=== PATIENT | female | born 1945 | race Caucasian/White ===

== ENCOUNTER 2023-02-15 09:14 | Day surgery (SDC) | payer MEDICARE ==
[~2023-02-15 09:14] MED LIST: LACTATED RINGERS 1,000 ML IV SCH
[2023-02-15] MEDS ORDERED: LACTATED RINGERS 1,000 ML IV ONE (09:44)
[2023-02-15 10:00] VITALS: RESP 16; TEMP 98.2
[2023-02-15] MEDS ORDERED: PROPOFOL 10 MG/ML 20 ML VIAL IV ONE (10:39)
[2023-02-15] MEDS ORDERED: LIDOCAINE 2% INJ 20 MG/ML (2 ML VIAL) ONE (10:39)
--- NOTE | 2023-02-15 11:05 | P.PCN ---
Date of Procedure: 02/15/23 Procedure(s) Performed: BRIEF HISTORY: Patient is a 77 year-old pleasant white female scheduled for an elective colonoscopy as a part of evaluation of prior history of colon polyps. PROCEDURE PERFORMED: Colonoscopy with snare polypectomy. PREOPERATIVE DIAGNOSIS: History of colon polyps. IV sedation per Anesthesia. PROCEDURE: After informed consent was obtained, the patient, was brought into the endoscopy unit. IV sedation was administered by Anesthesia under continuous monitoring. Digital rectal examination was normal. Initially the Olympus CF-160 flexible video colonoscope was then inserted in the rectum, gradually advanced into the cecum with mild to moderate difficulty. Careful examination was performed as the scope was gradually being withdrawn. Ileocecal valve and the appendiceal orifice were visualized and appeared normal. Prep was fair.. Mucosa of the cecum, ascending colon, appeared normal. The transverse colon there was a 7 mm polyp removed by snare polypectomy. Rest of the transverse colon, descending colon, sigmoid colon, and rectum appeared normal. Retroflexion was performed in the rectum and no lesions were seen. The patient tolerated the procedure well. IMPRESSION: 7 mm transverse colon polyp status post polypectomy Rest of the colon appeared normal Melanosis coli RECOMMENDATIONS: Findings of this examination were discussed with the patient as well as a family. She was advised to follow with the biopsy results and have a repeat colonoscopy in 5 years.
[2023-02-15 11:50] VITALS: BP 160/74; PULSE 57
== END 2023-02-15 12:25 | disposition home or self-care (01) ==
LOC: ORWHC2ENDO 09:14
PROVIDERS: ATTEND Internal Medicine Gastroenterology
DX: D12.6 Benign neoplasm of colon, unspecified (principal); D12.3 Benign neoplasm of transverse colon; I10 Essential (primary) hypertension; E78.5 Hyperlipidemia, unspecified; Z88.6 Allergy status to analgesic agent; Z79.899 Other long term (current) drug therapy; K63.89 Other specified diseases of intestine; Z87.19 Personal history of other diseases of the digestive system
CPT/HCPCS: 88305; 45385; J2704; J2001

== ENCOUNTER → 2024-01-29 | Outpatient (CLI) | payer MEDICARE ==
--- NOTE | 2024-02-22 09:20 | CT ---
Patient Cornelio Carvajal M ID [id number] Order # EXAMINATION TYPE: CT abdomen pelvis w con DATE OF EXAM: 02/08/2024 COMPARISON: No comparison available on downtime PACS. INDICATION: Flank pain DLP: 373.5 mGycm, Automated exposure control for dose reduction was used. CONTRAST: 0 mL of Isovue 300. Study performed without Oral Contrast TECHNIQUE: Axial images were obtained from above the diaphragm to the pubic rami in the axial plane a t 5 mm thick sections. Reconstructed images are reviewed on the computer in the coronal plane. FINDINGS: Limited CT sections are obtained the lung bases. The lung bases are clear. CT ABDOMEN: Liver: Normal Spleen: Couple of calcified granuloma within the spleen. Pancreas: Normal Adrenal glands: The adrenal glands are normal. Gallbladder: Not well visualized. Kidneys: No masses are evident. No hydronephrosis is present. No cysts are present. There is a pun ctate nonobstructing renal stone at the inferior pole left kidney. Aorta: Vascular calcification is within the aorta. Inferior vena cava: Normal. CT PELVIS: Loops of bowel within the abdomen and pelvis are normal. This study is without oral contrast limi ting bowel evaluation. Appendix: Normal as visualized. Urinary bladder: Normal. Genitourinary structures: Uterus and ovaries are not identified. Osseous structures: No suspicious lytic or sclerotic lesions. IMPRESSION: 1. Solitary punctate nonobstructing inferior pole left renal stone.
== END | disposition home or self-care (01) ==
LOC: RADCTMAIN 09:23
PROVIDERS: ATTEND Urology
DX: N20.0 Calculus of kidney (principal)
CPT/HCPCS: 74176